=== PATIENT | female | born 2000 | race Two or more races ===

== ENCOUNTER 2019-12-15 11:06 | Inpatient (IN) | payer OTHER ==
[~2019-12-15] VITALS: Ht 152.4 cm; Wt 53.1 kg
[2019-12-25] MEDS ORDERED: PRENATAL + DHA1 EAC1 PO (00:27)
== END 2019-12-27 11:51 | disposition home or self-care (01) | DRG 807 ==
LOC: LDR 12-25 00:24 → OB/GYN 12-25 00:24
PROVIDERS: ADMIT Obstetrics & Gynecology; ATTEND Obstetrics & Gynecology
PROC: 10E0XZZ Delivery of Products of Conception, External Approach (ICD-10-PCS; principal; 2019-12-25)
PROC: 10907ZC Drainage of Amniotic Fluid, Therapeutic from Products of Conception, Via Natural or Artificial Opening (ICD-10-PCS; 2019-12-25)
PROC: 3E033VJ Introduction of Other Hormone into Peripheral Vein, Percutaneous Approach (ICD-10-PCS; 2019-12-25)
PROC: 4A1HXFZ Monitoring of Products of Conception, Cardiac Rhythm, External Approach (ICD-10-PCS; 2019-12-25)
DX: O99.824 Streptococcus B carrier state complicating childbirth (principal); Z37.0 Single live birth; Z3A.38 38 weeks gestation of pregnancy; Z20.828 Contact with and (suspected) exposure to other viral communicable diseases